=== PATIENT | female | born 1990 | race Caucasian/White ===

== ENCOUNTER 2017-12-18 04:03 | Inpatient (IN) | payer OTHER ==
[2017-12-18] MEDS: LACTATED RINGER'S 1,000 ML IV ×4 (04:30→23:03)
[2017-12-18 04:57] LABS: ADD MAN DIFF? NO
[2017-12-18 04:58] LABS: BASOPHILS % 0.2 % (0.0-2.0); EOSINOPHILS # 0.1 10^3/ul (0.0-0.5); EOSINOPHILS % 0.7 % (0.0-7.0); HEMATOCRIT 34.6 % (37.0-47.0); HEMOGLOBIN 12.1 g/dl (12.0-16.0); LYMPHOCYTES # 2.5 10^3/ul (0.8-2.9); MEAN CORPUSCULAR HEMOGLOBIN 32.8 pg (29.0-33.0); MEAN CORPUSCULAR VOLUME 93.8 fl (82.0-101.0); MEAN PLATELET VOLUME 11.4 fl (7.4-10.4); MONOCYTE # 0.5 10^3/ul (0.3-0.9); MONOCYTES % 6.5 % (0.0-11.0); NEUTROPHIL # 4.9 10^3/ul (1.6-7.5); NEUTROPHILS % 61.5 % (39.0-77.0); PLATELET COUNT 211 10^3/UL (140-415); RED BLOOD COUNT 3.69 10^6/ul (4.20-5.40); RED CELL DISTRIBUTION WIDTH 12.3 % (11.5-14.5)
[2017-12-18 05:18] LABS: INR 0.91; PARTIAL THROMBOPLASTIN TIME 26.7 Sec (25.0-35.0); PROTIME 12.3 Sec (11.9-14.9)
[2017-12-18] MEDS: LACTATED RINGER'S 1,000 ML IV* ×3 (05:29→19:48)
[2017-12-18] MEDS ORDERED: METHYLERGONOVINE 0.2 MG INJ IM ×2 (05:30→07:30)
[2017-12-18] MEDS ORDERED: CARBOPROST 250 MCG INJ IM ×2 (05:30→07:30)
[2017-12-18] MEDS ORDERED: MISOPROSTOL 200 MCG TAB PR ×2 (05:30→07:30)
[2017-12-18] MEDS ORDERED: OXYTOCIN 30 UNITS/LR 500 ML IV ×2 (05:30→07:30)
[2017-12-18] MEDS ORDERED: CEFAZOLIN 2 GM/50 ML (PMX) 50 ML IVPB (05:34)
[2017-12-18] MEDS ORDERED: BUPIVACAINE 0.75%/DEXT (SPINAL) 2 ML INJ (06:06)
[2017-12-18] MEDS ORDERED: FENTAnyl 50 MCG/ML VIAL (06:06)
[2017-12-18] MEDS ORDERED: morphine SULFATE/PF (10 MG/10 ML) INJ (06:06)
[2017-12-18] MEDS ORDERED: DEXAMETHASONE 4 MG/ML 1 ML INJ (06:06)
[2017-12-18] MEDS ORDERED: PHENYLephrine (100 MCG/ML) 5ML SYG (07:00)
[2017-12-18] MEDS ORDERED: OXYTOCIN 30 UNITS/LR 500 ML BAG IV (07:00)
[2017-12-18] MEDS ORDERED: DIPHENHYDRAMINE 50 MG INJ IV (07:30)
[2017-12-18] MEDS ORDERED: ZOLPIDEM 5 MG TAB PO (07:30)
[2017-12-18] MEDS ORDERED: ONDANSETRON 4 MG INJ IV (07:30)
[2017-12-18] MEDS ORDERED: NALOXONE (0.4 MG/ML) INJ IV (07:30)
[2017-12-18] MEDS ORDERED: HYDROmorphONE 0.5 MG/0.5 ML SYG IV ×2 (07:30)
[2017-12-18] MEDS ORDERED: KETOROLAC 30 MG INJ IV (07:30)
[2017-12-18] MEDS: OXYTOCIN 30 UNITS/LR 500 ML IV (08:22)
[2017-12-18] MEDS: KETOROLAC 30 MG INJ IV ×2 (09:41→22:22)
[2017-12-18] MEDS ORDERED: ONDANSETRON 4 MG INJ (16:10)
[2017-12-18] MEDS: LANOLIN 7 GM TUBE TOP (17:08)
[2017-12-18 21:55] LABS: RAPID PLASMA REAGIN NONREACTIVE (NR)
[2017-12-19] MEDS: LACTATED RINGER'S 1,000 ML IV* (03:38)
[2017-12-19] MEDS: IBUPROFEN 800 MG TAB PO ×3 (06:00→21:59)
[2017-12-19] MEDS: KETOROLAC 30 MG INJ IV (06:37)
[2017-12-19] MEDS: LACTATED RINGER'S 1,000 ML IV ×2 (07:03→15:03)
[2017-12-19 07:26] LABS: ADD MAN DIFF? NO
[2017-12-19 07:37] LABS: BASOPHILS % 0.2 % (0.0-2.0); EOSINOPHILS % 0.3 % (0.0-7.0); HEMATOCRIT 28.8 % (37.0-47.0); HEMOGLOBIN 9.9 g/dl (12.0-16.0); LYMPHOCYTES % 27.1 % (15.0-51.0); MEAN CORPUSCULAR HEMOGLOBIN 32.4 pg (29.0-33.0); MEAN CORPUSCULAR HGB CONC 34.4 g/dl (32.0-37.0); MEAN CORPUSCULAR VOLUME 94.1 fl (82.0-101.0); MEAN PLATELET VOLUME 11.6 fl (7.4-10.4); MONOCYTE # 0.7 10^3/ul (0.3-0.9); MONOCYTES % 6.2 % (0.0-11.0); NEUTROPHIL # 7.2 10^3/ul (1.6-7.5); NEUTROPHILS % 65.8 % (39.0-77.0); PLATELET COUNT 160 10^3/UL (140-415); RED BLOOD COUNT 3.06 10^6/ul (4.20-5.40); RED CELL DISTRIBUTION WIDTH 12.4 % (11.5-14.5)
[2017-12-19 07:37] LABS: WHITE BLOOD COUNT 10.9 10^3/ul (4.8-10.8)
[2017-12-19] MEDS: OXYCODONE/ACETAMINOPHEN (5/325) TAB PO ×2 (11:14→21:11)
[2017-12-19] MEDS: FERROUS SULFATE (EC) 325 MG TAB PO (21:11)
[2017-12-20] MEDS: IBUPROFEN 800 MG TAB PO ×3 (05:42→21:09)
[2017-12-20] MEDS: LACTATED RINGER'S 1,000 ML IV (07:58)
[2017-12-20] MEDS: CEFAZOLIN 2 GM/50 ML (PMX) 50 ML IV (08:02)
[2017-12-20] MEDS: FERROUS SULFATE (EC) 325 MG TAB PO ×2 (09:00→21:09)
[2017-12-20] MEDS: OXYCODONE/ACETAMINOPHEN (5/325) TAB PO (20:19)
[2017-12-21] MEDS: IBUPROFEN 800 MG TAB PO ×2 (05:09→13:30)
[2017-12-21] MEDS: MEASLES,MUMPS,RUBELLA VACCINE INJ SC* (09:00)
[2017-12-21] MEDS: DIPHTH/TET/ACEL PERTUSS (ADULT) 0.5 ML VIAL IM* (09:00)
[2017-12-21] MEDS: FERROUS SULFATE (EC) 325 MG TAB PO (10:31)
[2017-12-21] MEDS: OXYCODONE/ACETAMINOPHEN (5/325) TAB PO (10:46)
== END 2017-12-21 14:35 | disposition home or self-care (01) | DRG 765 ==
LOC: OBT 04:03 → L-D 04:05 → OBT 05:14 → L-D 05:15 → PP1 10:05
PROVIDERS: Obstetrics & Gynecology
PROC: 10D00Z1 Extraction of Products of Conception, Low, Open Approach (ICD-10-PCS; principal; 2017-12-18)
PROC: 4A1HXCZ Monitoring of Products of Conception, Cardiac Rate, External Approach (ICD-10-PCS; 2017-12-18)
DX: O42.913 Preterm premature rupture of membranes, unspecified as to length of time between rupture and onset of labor, third trimester (principal); O45.93 Premature separation of placenta, unspecified, third trimester; O34.219 Maternal care for unspecified type scar from previous cesarean delivery; Z3A.35 35 weeks gestation of pregnancy; Z37.0 Single live birth
CPT/HCPCS: 36415; 76815; 76818; 85025; 85610; 85730; 86592; 86850; 86900; 86901; 86920; 88307; 96360; 99464